=== PATIENT | male | born 1940 | race Caucasian/White ===

== ENCOUNTER 2018-08-21 20:10 | Observation (INO) | payer MEDICARE, OTHER ==
[2018-08-21 20:50] LABS: #Eosinphils 0.2 thou/uL (0.0-0.7); #Lymphocytes 1.7 thou/uL (1.20-3.40); #Monocytes 0.5 thou/uL (0.11-0.59); %Basophils 0.6 % (0.0-1.0); %Eosinophils 3.8 % (0.0-10.0); %Lymphocytes 39.6 % (21.0-51.0); %Monocytes 10.2 % (0.0-10.0); %Neutrophils 45.7 % (42.0-75.0); Hemoglobin 12.7 g/dL (14.0-18.0); Mean Corpuscular HGB CONC 33.5 g/dL (32.0-36.0); Mean Corpuscular Volume 95.5 fL (78.0-98.0); Mean Platelet Volume 6.9 fL (7.4-10.4); Platelet Count 182 thou/uL (130-400); RBC Distribution Width 12.2 % (11.5-14.5); Red Blood Cell (RBC) Count 3.96 mill/uL (4.70-6.10); White Blood Cell (WBC) Count 4.4 thou/uL (4.8-10.8)
[2018-08-21 21:09] LABS: Anion Gap 11 mmol/L (10-20); BUN (Urea Nitrogen) 9 mg/dL (8.4-25.7); Calc. Creatinine Clearance 0 mL/min (70-130); Carbon Dioxide 26 mmol/L (23-31); Chloride 106 mmol/L (98-107); Estimated GFR-MDRD 87; Glucose 90 mg/dL (83-110); Potassium 3.6 mmol/L (3.5-5.1); Sodium 139 mmol/L (136-145)
[2018-08-21 21:21] LABS: INR-International Normal Ratio 1.2; Prothrombin Time 15.6 SEC (12.0-14.7)
[2018-08-21] MEDS ORDERED: Zolpidem Tartrate 5 MG TAB PO PRN (22:47)
[2018-08-21] MEDS ORDERED: Acetaminophen 325 MG TAB PO PRN (22:47)
[2018-08-21] MEDS ORDERED: Ondansetron PF 4 MG/2 ML Vial IVP PRN (22:47)
[2018-08-21] MEDS ORDERED: Metoprolol Tartrate 5 MG/5 ML VIAL IVP PRN (22:51)
--- NOTE | 2018-08-21 23:41 | HP ---
CHIEF COMPLAINT: GI bleed. HISTORY OF PRESENT ILLNESS: This is a 78-year-old male, being admitted to the hospital because of black tarry stools that he noticed 1st thing last night around 7 p.m. The patient states that he has a past medical history of atrial fibrillation and he has been on Eliquis. Apart from that, he states that he does not have any other medical issues or problems. States that he has been taking Eliquis for few years now since his diagnosis of atrial fibrillation. The patient, otherwise, states that he also has a past medical history of prostate cancer that he does see Dr. Pierson for and gets monthly hormone shots for this. The patient states that black tarry stool started yesterday. He has only had 1 or 2 bowel movements. It was red initially and then became very very dark. He has had 2 bowel movements with this color. Denies any other symptoms. No nausea, vomiting, diarrhea, constipation, chest pain, fevers, chills, or shortness of breath. The patient is seen and examined in the ER. at bedside. All questions answered. ALLERGIES: NO KNOWN DRUG ALLERGIES. REVIEW OF SYSTEMS: All systems reviewed, pertinent positive in HPI, otherwise negative. SOCIAL HISTORY: Nondrinker and nonsmoker. FAMILY HISTORY: Positive for hypertension and diabetes. HOME MEDICATIONS: See MAR. PHYSICAL EXAMINATION: VITAL SIGNS: Blood pressure was 112/88, heart rate of 65, respiratory rate of 18, O2 saturations of 99% on room air, temperature of 98. GENERAL: The patient is lying in bed, in no acute discomfort. HEENT: Pupils are equal, round, and reactive to light and accommodation. Oral cavity moist and pink. NECK: Supple, mobile, and nontender. Thyroid appreciated. CARDIOVASCULAR: Regular rate and rhythm. S1 and S2. No murmurs, rubs, or gallops appreciated. PULMONARY: Clear to auscultation bilaterally. No respiratory distress. ABDOMEN: Positive bowel sounds. Soft, nontender, and nondistended. EXTREMITIES: 2+ peripheral pulses. No cyanosis, clubbing, or edema noted. NEUROLOGICAL: Cranial nerves II through XII intact. No loss of motor or sensory function. LABORATORY DATA: CBC reviewed. Coagulation panel reviewed. Basic metabolic panel reviewed. ASSESSMENT: 1. Upper gastrointestinal bleed. 2. History of atrial fibrillation, paroxysmal. PLAN: At this point in time, given that the patient has regular rate and rhythm as no cardiac abnormalities with hemodynamic stability, we will hold off on Eliquis for now. Consulted GI. Started IV fluids. N.p.o. past midnight. Protonix 40 mg IV q.12 hours. Possible endoscopy in the morning. The patient has had a colonoscopy approximately a little more than half a decade ago and was told that he does not need any further scopes that he had 1 polyp removed last time. The patient, otherwise, is stable. We will place in observation. Repeat hemoglobin tomorrow. If hemoglobin is stable, can even do perhaps outpatient followup with GI if okay with GI. Wishes to remain a full code. Case and plan were discussed the patient's and the patient at length. They understand and agree with this plan. Job ID: [id number]
[2018-08-22] MEDS: Sodium Chloride 0.9% 1,000 ML IV SCH ×2 (00:07→13:15)
[2018-08-22 05:38] LABS: #Eosinphils 0.1 thou/uL (0.0-0.7); #Lymphocytes 1.3 thou/uL (1.20-3.40); #Monocytes 0.3 thou/uL (0.11-0.59); #Neutrophils 1.2 thou/uL (1.40-6.50); %Basophils 0.7 % (0.0-1.0); %Eosinophils 3.1 % (0.0-10.0); %Lymphocytes 44.3 % (21.0-51.0); %Monocytes 8.9 % (0.0-10.0); Mean Corpuscular Volume 94.2 fL (78.0-98.0); Mean Platelet Volume 7.1 fL (7.4-10.4); Platelet Count 155 thou/uL (130-400); RBC Distribution Width 12.2 % (11.5-14.5); Red Blood Cell (RBC) Count 3.65 mill/uL (4.70-6.10); White Blood Cell (WBC) Count 2.9 thou/uL (4.8-10.8)
[2018-08-22 05:57] LABS: Anion Gap 11 mmol/L (10-20); BUN (Urea Nitrogen) 8 mg/dL (8.4-25.7); Calc. Creatinine Clearance 81 mL/min (70-130); Calcium 8.6 mg/dL (7.8-10.44); Carbon Dioxide 26 mmol/L (23-31); Chloride 108 mmol/L (98-107); Estimated GFR-MDRD Greater than 90; Glucose 102 mg/dL (83-110); Potassium 3.6 mmol/L (3.5-5.1); Sodium 141 mmol/L (136-145)
[2018-08-22] MEDS: Pantoprazole 40 MG VIAL IVP SCH ×2 (08:47→20:50)
[2018-08-22] MEDS: Flecainide 50 MG TAB PO SCH ×2 (08:47→20:50)
--- NOTE | 2018-08-22 12:15 | PDOC.PN ---
- Subjective Encounter Start Date: 08/22/18 Encounter Start Time: 12:13 Subjective: noticed bleeding GA since 6 pm last night,small amount this morning -: but feels good. no dizziness.no sob. -: reports that he is still on PO Chemo for recurrent prostate CA denies any blood in urine. no abd pain - Objective Resuscitation Status - Order Detail: 08/21/18 22:47 Resuscitation Status Routine Resuscitation Status: FULL: Full Resuscitation Discussed with: patient MAR Reviewed: Yes Vital Signs & Weight: Vital Signs (12 hours) Temp Pulse Resp BP Pulse Ox 08/22/18 07:20 97.3 F L 56 L 20 140/65 99 08/22/18 04:59 97 08/22/18 02:03 97.8 F 61 16 155/75 H 97 Weight Weight 170 lb 6.4 oz I&O: 08/21/18 08/22/18 08/23/18 06:59 06:59 06:59 Intake Total 280 Balance 280 Result Diagrams: 08/22/18 05:21 08/22/18 05:21 Additional Labs: Laboratory Tests 12/07/14 08/21/18 08/22/18 10:15 20:42 05:21 Hgb 12.5 L 12.7 L 12.0 L Phys Exam - Physical Examination Constitutional: NAD HEENT: PERRLA, moist MMs, sclera anicteric, oral pharynx no lesions Neck: no nodes, no JVD, supple, full ROM Respiratory: no wheezing, no rales, no rhonchi, clear to auscultation bilateral Cardiovascular: RRR, no significant murmur, no rub Gastrointestinal: soft, non-tender, no distention, positive bowel sounds Musculoskeletal: no edema, pulses present Neurological: non-focal, normal sensation, moves all 4 limbs Psychiatric: normal affect, A&O x 3 Skin: no rash Dx/Plan (1) Hematochezia Code(s): K92.1 - MELENA Status: Acute (2) Prostate cancer Code(s): C61 - MALIGNANT NEOPLASM OF PROSTATE Status: Acute Comment: Recurrent.s/p Sx and Radiation.now On PO Chemo and IV q3 months (3) Paroxysmal atrial fibrillation Code(s): I48.0 - PAROXYSMAL ATRIAL FIBRILLATION Status: Chronic - Plan DVT proph w/SCDs H/H stable. cont PPI -: will likley need colonoscopy.suspect AVM or in worst case scenario-mets -: check UA . -: Hd stable. cont IVF.NPO -: restart flecainide but cont to hold OAC d/t GIB * . Review of Systems - Review of Systems Constitutional: negative: fever, chills, sweats, weakness, malaise, other ENT: negative: Ear Pain, Ear Discharge, Nose Pain, Nose Discharge, Nose Congestion, Mouth Pain, Mouth Swelling, Throat Pain, Throat Swelling, Other Respiratory: negative: Cough, Dry, Shortness of Breath, Hemoptysis, SOB with Excertion, Pleuritic Pain, Sputum, Wheezing Cardiovascular: negative: chest pain, palpitations, orthopnea, paroxysmal nocturnal dyspnea, edema, light headedness, other Gastrointestinal: Hematochezia. negative: Nausea, Vomiting, Abdominal Pain, Diarrhea, Constipation, Melena, Other Genitourinary: negative: Dysuria, Frequency, Incontinence, Hematuria, Retention , Other Neurological: negative: Weakness, Numbness, Incoordination, Change in Speech, Confusion, Seizures, Other - Medications/Allergies Allergies/Adverse Reactions: Allergies Allergy/AdvReac Type Severity Reaction Status Date / Time No Known Drug Allergies Allergy Verified 08/21/18 23:53 Medications: Current Medications Acetaminophen (Tylenol) 650 mg PO Q4H PRN PRN Reason: Headache/Fever/Mild Pain (1-3) Flecainide Acetate (Tambocor) 100 mg PO BID [facility] Last Admin: 08/22/18 08:47 Dose: 100 mg Sodium Chloride (Normal Saline 0.9%) 1,000 mls @ 75 mls/hr IV .[id number] [facility] Last Admin: 08/22/18 00:07 Dose: 1,000 mls Metoprolol Tartrate (Lopressor) 5 mg IVP Q6H PRN PRN Reason: FOR HR > 120 Ondansetron HCl (Zofran) 4 mg IVP Q6H PRN PRN Reason: Nausea/Vomiting Pantoprazole Sodium (Protonix) 40 mg IVP Q12HR [facility] Last Admin: 08/22/18 08:47 Dose: 40 mg Sodium Chloride (Flush - Normal Saline) 10 ml IVF Q12HR [facility] Last Admin: 08/22/18 08:48 Dose: Not Given Sodium Chloride (Flush - Normal Saline) 10 ml IVF PRN PRN PRN Reason: Saline Flush Zolpidem Tartrate (Ambien) 5 mg PO HSPRN PRN PRN Reason: Insomnia
[2018-08-22 12:21] LABS: Bilirubin Negative (Negative); Blood, Urine Negative (Negative); Clarity CLEAR (Clear); Glucose, Urine (Dipstick) Negative (Negative); Leukocyte Negative (Negative); Nitrite Negative (Negative); Protein, Urine (Dipstick) Negative (Neg-Trace); Specific Gravity, Urine 1.015 (1.002-1.036); pH, Urine 6.5 (5.0-9.0)
[2018-08-22 12:24] LABS: Bacteria/HPF None Seen HPF (None Seen); Hyaline Casts/LPF 0-3 HYALINE CAST LPF (0-3 Hyaline); Pathc Cast-AUWi Flag 0.67 (0-2.49); RBC/HPF 0-3 HPF (0-3); Squamous Epithelial 0-3 HPF (0-3); WBC/HPF None Seen HPF (0-3)
[2018-08-22 12:25] LABS: Urine Culture Reflex No No
[2018-08-22 13:52] LABS: Hemoglobin 11.8 g/dL (14.0-18.0)
[2018-08-22] MEDS ORDERED: GoLYTELY 4,000 ml Bottle PO SCH (20:00)
--- NOTE | 2018-08-22 23:40 | CON ---
DATE OF CONSULTATION: 08/22/2018 CHIEF COMPLAINT: Blood in the stool. HISTORY OF PRESENT ILLNESS: Mr. Gutierrez is a 78-year-old man who had sudden onset of a large volume red bloody stools with clots followed by black stools 3 or 4 times yesterday. He has had no nausea, vomiting, or abdominal pain with this. No diarrhea or constipation preceding that. No chest pain or shortness of breath. He has been on Eliquis for atrial fibrillation. His last dose was Thursday morning, yesterday morning. This afternoon, he had 2 stools that were more brown, mixed with some red blood. He has had no dizziness or lightheadedness or weakness. He has felt fine throughout the course of this. PAST MEDICAL HISTORY: Atrial fibrillation and history of prostate cancer. PAST SURGICAL HISTORY: Hernia repair. He states he had a colonoscopy around 6 years ago. Review of the records from my office showed that he had colonoscopy in March of [address] Chapman[address] This showed diverticulosis in the left colon, but was otherwise normal. He had EGD and colonoscopy in December 2009, which showed small hiatal hernia, otherwise normal EGD, and a small tubular adenoma removed from the right colon. Prostatectomy followed by a year later multiple radiation treatments. FAMILY HISTORY: Positive for colon cancer in his mother. SOCIAL HISTORY: He drinks 2 ounces of alcohol, average 3 times per week. No tobacco. No drugs. ALLERGIES: NO KNOWN DRUG ALLERGIES. MEDICATIONS: Prior to admission include, 1. Eliquis. 2. Omeprazole. 3. Tamsulosin. 4. Xtandi. 5. He gets hormone shots once a month. REVIEW OF SYSTEMS: Negative x10 systems reviewed except as stated in the history of present illness. PHYSICAL EXAMINATION: VITAL SIGNS: Temperature 98.1, pulse 48, blood pressure 155/75. GENERAL: He is in no acute distress. Alert and oriented x3. HEENT: Eyes have no scleral icterus. Oropharynx is clear without lesions. NECK: No cervical or supraclavicular lymphadenopathy. LUNGS: Clear to auscultation bilaterally. HEART: Regular rate and rhythm without murmur. ABDOMEN: Soft, nontender, and nondistended. Bowel sounds are present. EXTREMITIES: No lower extremity edema. RECTAL: He has light brown stool with reddish tint now. LABORATORY DATA: White blood cell count 2.9, hemoglobin 11.8, platelets 155. INR 1.2. Creatinine 0.82. IMPRESSION: 1. Acute gastrointestinal bleed on Eliquis. He started with both black and red stools. However, the stool now is more brown with reddish tint. I would suspect overall that this is an upper gastrointestinal bleed, but he said there was a lot of red with the blood too and he has no melena on rectal exam now, so it is possible that this could be lower gastrointestinal bleed. 2. Anemia of acute blood loss. 3. Atrial fibrillation. His last dose of Eliquis was on Thursday, yesterday morning. RECOMMENDATIONS: 1. Proton pump inhibitor. 2. EGD and colonoscopy tomorrow. Job ID: [id number]
[2018-08-23] MEDS: Sodium Chloride 0.9% 1,000 ML IV SCH ×2 (02:00→15:23)
[2018-08-23 05:34] LABS: Hemoglobin 11.7 g/dL (14.0-18.0)
[2018-08-23] MEDS ORDERED: Lidocaine Viscous Sol 2% 15 ml UD Cup ONE (10:07)
[2018-08-23] MEDS ORDERED: Promethazine HCl 25 MG/ML VIAL SLOW IVP PRN (11:07)
[2018-08-23] MEDS ORDERED: Promethazine HCl 25 MG/ML VIAL IM PRN (11:07)
[2018-08-23] MEDS ORDERED: Ondansetron HCl/PF 4 MG/2 ML Vial IVP PRN (11:07)
--- NOTE | 2018-08-23 11:33 | OP ---
DATE OF PROCEDURE: 08/23/2018 PROCEDURE PERFORMED: Esophagogastroduodenoscopy and colonoscopy. PREOPERATIVE DIAGNOSIS: GI bleed while on Eliquis. DESCRIPTION OF PROCEDURE: Informed consent was obtained from the patient. He was sedated with total intravenous anesthesia. The bite block was placed and the endoscope was advanced easily to the second portion of the duodenum and retroflexion was performed in the stomach. The esophagus was normal. The GE junction was normal. Stomach was normal including retroflexed views. The pylorus and first and second portions of the duodenum were normal. The image quality was suboptimal with the upper endoscopy. The patient was turned around. Rectal exam was performed and was normal. The colonoscope was advanced to the terminal ileum without difficulty. The mucosa of the terminal ileum was normal. The ileocecal valve and appendiceal orifice were clearly identified. There was moderate diverticulosis throughout the colon. The remainder of the colonic mucosa was normal. There were mild radiation telangiectasias in the anterior distal rectum. These were not bleeding. Retroflexed views in the rectum unremarkable. IMPRESSION: 1. Normal esophagogastroduodenoscopy. 2. Moderate diverticulosis throughout the colon. This could have been the bleeding source. There is no stigmata of recent bleeding on this exam, now he has been off the Eliquis. 3. Mild radiation telangiectasias in the rectum. 4. Otherwise normal ileocolonoscopy. RECOMMENDATIONS: 1. Advance diet. 2. Obtain nuclear medicine abdominal bleeding scan if he actively bleeds in the future. 3. Hold Eliquis for a week. 4. Anticipate discharge home today. I will sign off. Job ID: [id number]
[2018-08-23] MEDS: Pantoprazole 40 MG VIAL IVP SCH (11:55)
[2018-08-23] MEDS: Flecainide 50 MG TAB PO SCH (12:06)
[2018-08-23 12:26] VITALS: TEMP 97.8
[2018-08-23 12:36] VITALS: BMI 24.5
[2018-08-23] MEDS ORDERED: hydrALAZINE 20 MG/ML VIAL SLOW IVP PRN (13:16)
[2018-08-23] MEDS ORDERED: cloNIDine 0.1 MG TAB PO PRN (13:17)
[2018-08-23] MEDS ORDERED: PROPOFOL 200 MG/20 ML VIAL ONE (14:10)
[2018-08-23] MEDS ORDERED: Lidocaine 1% PF 5 ML VIAL ONE (14:10)
[2018-08-23 15:23] VITALS: BP 130/60
--- NOTE | 2018-08-24 03:52 | DIS ---
DATE OF ADMISSION: 08/21/2018 DATE OF DISCHARGE: 08/23/2018 CONDITION: At the time of discharge, stable and improved. DISCHARGE DISPOSITION: Home. DISCHARGE DIAGNOSES: 1. Lower gastrointestinal bleed, likely a diverticular bleed. 2. Hematochezia, secondary to lower gastrointestinal bleed. 3. History of prostate cancer. 4. Paroxysmal atrial fibrillation, on chronic anticoagulation. DISCHARGE MEDICATIONS: 1. Flomax 0.4 mg daily. 2. Omeprazole 20 mg p.o. b.i.d. 3. Flecainide 100 mg p.o. b.i.d. 4. Cholecalciferol 1000 units p.o. b.i.d. The patient will hold his Eliquis dose for 1 more week and not get his hemoglobin and hematocrit checked with his primary care physician, who is outside of town and will follow up with his emergency specialist for recommendations about restarting Eliquis. PRIMARY CARE PHYSICIAN: Dr. Duglas Magallanes, out of [facility]. IN-HOUSE CONSULTATION: Gastroenterology, Dr. Encarnacion. PROCEDURES DONE IN THE HOSPITAL: Esophagogastroduodenoscopy and colonoscopy on 08/23/2018. He has normal esophagogastroduodenoscopy. Moderate diverticulosis was seen throughout the colon, which could have been the bleeding source, but no active bleeding or stigmata of recent bleeding was seen. Mild radiation telangiectasias was seen in the rectum, otherwise normal ileocolonoscopy. HISTORY OF PRESENTING ILLNESS: Mr. Gutierrez is a very pleasant 78-year-old male who is on Eliquis for chronic atrial fibrillation and currently on oral chemotherapy for prostate cancer, who presented to the emergency room with complaints of multiple episodes of bright red blood per rectum. He was hemodynamically stable upon presentation and hemoglobin was 12.7. His baseline is around 11. He was admitted for further evaluation and care. Please see admission history and physical dictated by Dr. Infante on 08/21/2018. HOSPITAL COURSE: The patient's hemoglobin was trended and remained stable. It went as low as 11.7. He had no more episodes of bleeding in the hospital. He was taken off Eliquis and GI was consulted. Gastroenterology saw the patient and he underwent EGD and colonoscopy, which did not show any active bleed. He did have diverticulosis, which was thought to be likely source of the bleeding. The bleeding has not reoccurred and hemoglobin and hematocrit are stable and has been cleared by Gastroenterology for discharge today. He was seen and examined prior to discharge. His physical examination is within normal limits. Vital signs are stable. Blood pressure was slightly elevated, which was treated with 1 dose of p.r.n. clonidine with improvement to systolic 130s from systolic 170s. He is instructed to not take his Eliquis for 1 more week and discuss it further with his emergency specialist. He will get his hemoglobin and hematocrit checked with his primary care physician in the next 2 days and will discuss if it is safe for him to restart Eliquis earlier given his history of atrial fibrillation. Currently, he remains in normal sinus rhythm. PHYSICAL EXAMINATION: CHEST: Clear to auscultation bilaterally. HEART: Rate and rhythm are regular. ABDOMEN: Soft, nontender, and nondistended. No acute distress. DISCHARGE PLAN: Discharge plan was discussed with the patient and his , who verbalized understanding. Job ID: [id number]
== END 2018-08-23 15:06 | disposition home or self-care (01) ==
LOC: ERS 20:10 → ONC 23:18 → INTOOBSV 23:18 → 2SW 08-22 01:58
PROVIDERS: ADMIT Internal Medicine; ATTEND Internal Medicine
PROC: 0DJ08ZZ Inspection of Upper Intestinal Tract, Via Natural or Artificial Opening Endoscopic (ICD-10-PCS; principal; 2018-08-23)
PROC: 0DJD8ZZ Inspection of Lower Intestinal Tract, Via Natural or Artificial Opening Endoscopic (ICD-10-PCS; 2018-08-23)
DX: K57.31 Diverticulosis of large intestine without perforation or abscess with bleeding (principal); K62.89 Other specified diseases of anus and rectum; D62 Acute posthemorrhagic anemia; I48.0 Paroxysmal atrial fibrillation; C61 Malignant neoplasm of prostate; Z86.010 Personal history of colon polyps; Z79.01 Long term (current) use of anticoagulants; Z79.899 Other long term (current) drug therapy
CPT/HCPCS: 36415; 80048; 81001; 85014; 85018; 85025; 85610; 96361; 96374; 96376; 99285; C9113; G0378; J2001; J2704

== ENCOUNTER 2018-08-28 21:51 | Inpatient (IN) | payer MEDICARE, OTHER ==
[2018-08-28] MEDS ORDERED: Diltiazem 125 MG/25 ML ONE (22:11)
[2018-08-28 22:23] LABS: #Eosinphils 0.1 thou/uL (0.0-0.7); #Lymphocytes 1.5 thou/uL (1.20-3.40); #Monocytes 0.5 thou/uL (0.11-0.59); #Neutrophils 2.3 thou/uL (1.40-6.50); %Basophils 0.6 % (0.0-1.0); %Lymphocytes 33.6 % (21.0-51.0); %Neutrophils 51.8 % (42.0-75.0); Hemoglobin 12.3 g/dL (14.0-18.0); Mean Corpuscular HGB CONC 34.3 g/dL (32.0-36.0); Mean Corpuscular Hemoglobin 32.5 pg (27.0-31.0); Mean Corpuscular Volume 94.8 fL (78.0-98.0); Mean Platelet Volume 7.1 fL (7.4-10.4); Platelet Count 176 thou/uL (130-400); RBC Distribution Width 12.2 % (11.5-14.5); Red Blood Cell (RBC) Count 3.78 mill/uL (4.70-6.10); White Blood Cell (WBC) Count 4.4 thou/uL (4.8-10.8)
--- NOTE | 2018-08-28 22:28 | RAD ---
PORTABLE CHEST: 08/28/18 HISTORY: Chest pain. The lungs appear clear. No infiltrate. Heart size is upper normal. Vasculature normal. IMPRESSION: No acute findings. POS: [facility]
[2018-08-28] MEDS ORDERED: Aspirin Chewable 81 MG TAB ONE (22:36)
[2018-08-28 22:40] LABS: ALT (SGPT) 7 U/L (8-55); AST (SGOT) 10 U/L (5-34); Alkaline Phosphatase 64 U/L (40-150); Anion Gap 13 mmol/L (10-20); BUN (Urea Nitrogen) 15 mg/dL (8.4-25.7); Bilirubin, Total 0.6 mg/dL (0.2-1.2); CK (CPK) 63 U/L (30-200); Calc. Creatinine Clearance 0 mL/min (70-130); Calcium 9.1 mg/dL (7.8-10.44); Carbon Dioxide 24 mmol/L (23-31); Chloride 106 mmol/L (98-107); Estimated GFR-MDRD 88; Globulin 2.3 g/dL (2.4-3.5); Glucose 99 mg/dL (83-110); Potassium 3.2 mmol/L (3.5-5.1); Protein, Total 6.3 g/dL (5.8-8.1); Sodium 140 mmol/L (136-145)
[2018-08-29 01:34] VITALS: BMI 24.7
[2018-08-29] MEDS ORDERED: Ondansetron ODT 4 MG TAB SL PRN (01:53)
[2018-08-29] MEDS ORDERED: Acetaminophen 325 MG TAB PO PRN (01:53)
[2018-08-29] MEDS ORDERED: Ondansetron PF 4 MG/2 ML Vial IVP PRN (01:53)
[2018-08-29] MEDS ORDERED: Diltiazem HCl 125 MG, Admixture Fee 1 EACH in Sodium Chloride 0.9% 100 ML IVPB SCH (02:00)
[2018-08-29] MEDS ORDERED: Sodium Chloride 0.9% 1,000 ML IV SCH (02:00)
[2018-08-29 02:03] LABS: Troponin I Less than 0.010 ng/mL (< 0.028)
[2018-08-29 06:32] LABS: Troponin I 0.013 ng/mL (< 0.028)
[2018-08-29] MEDS ORDERED: Potassium Chloride 20 MEQ TAB PO SCH (08:45)
[2018-08-29 09:40] LABS: Free T4 (Free Thyroxine) 0.88 ng/dL (0.70-1.48); Thyroid Stimulating Hormone 2.57 uIU/mL (0.35-4.94)
[2018-08-29] MEDS: Flecainide 50 MG TAB PO SCH ×2 (11:37→21:15)
[2018-08-29] MEDS: Tamsulosin HCl 0.4 MG CAP PO SCH (11:37)
[2018-08-29] MEDS: Apixaban 5 MG TAB PO SCH ×2 (11:37→21:14)
--- NOTE | 2018-08-29 17:57 | CON ---
DATE OF CONSULTATION: 08/29/2018 REASON FOR CONSULTATION: Chest pain. HISTORY OF PRESENT ILLNESS: Mr. Gutierrez is a pleasant 78-year-old white gentleman, who comes to the hospital for chest pain. He was found to be in atrial fibrillation with RVR, eventually went back into sinus rhythm. His chest pain improved after that. He has had heart catheterization in the past about anywhere from, he thinks about 4 to 6 years ago[address] Neal in [place], who comes to an area close to where he lives from [place] in [facility]. He has been following him for paroxysmal atrial fibrillation. He has been on Eliquis for some time. Mr. Gutierrez had an admission just about a week ago to this facility for blood per rectum. He had colonoscopy and endoscopy and he was found to have diverticulosis and was told that he may have ooze from the diverticulosis, but there was no evidence of recent bleeding. He had his Eliquis stopped for a week and restarted. He actually took his first dose last night. Currently, Mr. Gutierrez is chest pain free. PAST MEDICAL HISTORY: 1. Paroxysmal atrial fibrillation. 2. GI bleeding from what appears to be diverticulosis. 3. History of prostate cancer. PAST SURGICAL HISTORY: 1. Hernia repair. 2. Recent EGD, colonoscopy. 3. Prostatectomy followed by radiation. FAMILY HISTORY: Noncontributory. SOCIAL HISTORY: 2 ounce of alcohol about 3 times a week. No tobacco or drugs. OUTPATIENT MEDICATIONS: 1. Enzalutamide, which is Xtandi 160 mg q.p.m. 2. Tamsulosin. 3. Omeprazole. 4. Flecainide 100 mg b.i.d. 5. Vitamin D3. 6. Eliquis 5 mg b.i.d., he restarted this morning. ALLERGIES: NO KNOWN DRUG ALLERGIES. REVIEW OF SYSTEMS: A 12-point review of systems was done, was all negative unless stated in the history of present illness. PHYSICAL EXAMINATION: VITAL SIGNS: Temperature 97.0, pulse 61, respiratory rate 16, saturating 98% on room air, and blood pressure 123/59. GENERAL: Awake, alert, oriented x3. No distress. HEENT: Normocephalic, atraumatic. NECK: Supple. LUNGS: Clear. CARDIOVASCULAR: S1 and S2. No S3 or S4. No murmurs. ABDOMEN: Soft, positive bowel sounds. EXTREMITIES: No edema. SKIN: Warm and dry. LABORATORY DATA: Laboratory work was reviewed. CBC with a white count of 4, hemoglobin of 12, hematocrit 35, platelet count of 176. Chemistry unremarkable except potassium is 3.2. Troponin is negative x3. Free T4, free T3 and TSH were all normal. ASSESSMENT AND PLAN: 1. Paroxysmal atrial fibrillation, currently back in sinus rhythm. 2. Chest pain. 3. Recent gastrointestinal bleed, on Eliquis. PLAN: 1. At this point, it would be prohibitive to do a heart catheterization as if there is any complication that requires stenting he would have to be on dual anti-platelet therapy for at least one month and with his recent history of GI bleeding, I would think the risk outweighs the benefits. At this time, his troponins completely negative. His chest pain was in the setting of having rapid atrial fibrillation, which most likely happened due to having low potassium. We will recommend replacing the potassium. We will recommend against any further risk stratification. He tells me he has had a heart catheterization about 4 to 6 years ago which was completely clean, so the likelihood of coronary artery disease is somewhat lower. 2. We will get an echocardiogram to assess LV function, valvular structures. 3. I spoke at length about being a candidate for Watchman versus Lariat device given his recent GI bleeding, on Eliquis. He agrees to at least talk to the [employer] to see if he would be a candidate or not for this. We will consult EP for this. 4. Otherwise per GI recommendations, okay to restart Eliquis. I would be very careful, continue to trend CBCs in the next few days. 5. We will follow. Job ID: [id number]
[2018-08-29] MEDS ORDERED: Enzalutamide [Xtandi] 160 MG PO SCH (21:00)
[2018-08-30 06:15] LABS: Hemoglobin 11.5 g/dL (14.0-18.0); Platelet Count 161 thou/uL (130-400)
[2018-08-30 06:36] LABS: Calc. Creatinine Clearance 87 mL/min (70-130); Estimated GFR-MDRD Greater than 90
--- NOTE | 2018-08-30 07:35 | HP ---
CHIEF COMPLAINT: Chest pain and heart palpitations. HISTORY OF PRESENT ILLNESS: The patient is a 78-year-old male, who is admitted to the hospital with acute onset of chest pain and heart palpitations. The pain started yesterday. It was located retrosternally, rated at 8 on a scale from 1 to 10, associated with some shortness of breath. No nausea. No vomiting. No clammy skin. brought him to the emergency room last night. He was found to be in atrial fibrillation with RVR and was given Cardizem and got admitted to the hospital for further management of his problem. He has a history of paroxysmal atrial fibrillation in the past. His environmental program manager is in [place] which is Dr. Lopez. His primary care physician is Dr. Magallanes in [place]. Surrogate decision maker, Arden Gutierrez, patient's son. The patient was given Cardizem in the emergency room, which slowed his heart rate to below 100 and helped his chest pain. MEDICAL HISTORY: 1. Paroxysmal atrial fibrillation. 2. Recent lower GI bleeding. 3. Chronic anticoagulation with Eliquis. 4. Prostate cancer status post surgery and radiation. PAST SURGICAL HISTORY: 1. Hernia repair. 2. Prostatectomy. 3. Tonsillectomy. 4. Bilateral hip replacement. ALLERGIES: NONE. CURRENT MEDICATIONS: 1. Omeprazole 20 mg twice a day. 2. Tamsulosin 0.4 mg once a day. 3. Xtandi 40 mg once a day. 4. Flecainide 100 mg twice a day. FAMILY HISTORY: Mother when she was 62 of colon cancer. Father at the age of 42 from some kind of ulcer bleeding. SOCIAL HISTORY: He drinks daily, usually 1 to 2 drinks. He does not use any illicit drugs. He does not smoke. REVIEW OF SYSTEMS: All 10 systems were reviewed and they were all only positive for those symptoms which mentioned in HPI. PHYSICAL EXAMINATION: VITAL SIGNS: Blood pressure is 115/56, pulse is 57, temperature is 96.6, respirations are 16, and O2 saturation is 98% on room air. HEENT: Head is atraumatic and normocephalic. Eyes are PERRLA. Sclerae are nonicteric. Oral mucosa is moist. NECK: Supple. LUNGS: Clear. HEART: S1 and S2 normal. No S3. No S4. No any murmur. ABDOMEN: Soft and nontender. Bowel sounds are present. No organomegaly. EXTREMITIES: No clubbing, cyanosis, or edema. NEUROLOGIC: He is alert and oriented x4. There is no any motor or sensory deficits present. Cranial nerves are intact. LABORATORY DATA: Labs showed a white count of 4.4, hemoglobin of 12.3, hematocrit 35.9, platelet count is 176,000. Chemistry shows sodium of 140, potassium 3.2, chloride 106, CO2 of 24, BUN 15, creatinine 0.84, magnesium 1.9, calcium 9.1, AST 10, ALT 7, globulin 2.3, and three sets of troponins 0.010 x3. EKG personally reviewed by me showed atrial fibrillation with RVR, ventricular rate 129 with infrequent premature ventricular complexes. IMPRESSION: 1. Recurrent atrial fibrillation with rapid ventricular response. 2. Hypokalemia. 3. Recent low GI bleeding. Eliquis was put on hold for 1 week. 4. Prostate cancer. 5. Chest pain, resolved. PLAN: Full admission to telemetry floor. Condition fair. Activity bedrest and bathroom privileges. IV Hep-Lock. Continue his home medications. Restart Eliquis. He just converted to normal sinus rhythm at 0440 hours and Cardizem drip was stopped since he had several pauses more than 2 seconds' long and I think this recurrent event is related to his alcohol drinking and he is advised to stop drinking alcohol. I will check his TSH, free T3, and free T4. We will obtain Cardiology consultation with Dr. Frausto. Job ID: [id number]
[2018-08-30] MEDS: Flecainide 50 MG TAB PO SCH ×2 (09:12→20:18)
[2018-08-30] MEDS: Apixaban 5 MG TAB PO SCH ×2 (09:12→20:18)
[2018-08-30] MEDS: Tamsulosin HCl 0.4 MG CAP PO SCH (09:13)
--- NOTE | 2018-08-30 13:27 | PRG ---
DATE OF SERVICE: 08/30/2018 SUBJECTIVE: The patient is seen and examined at the bedside. He is feeling good. He does not have much complaints to offer. He does not have any chest pain and he does not feel his heart flipping and flopping like before. OBJECTIVE: VITAL SIGNS: Blood pressure is 148/61, pulse is 53, temperature is 97.5, respiratory rate is 16, O2 saturation is 97% on room air. HEENT: His head is atraumatic and normocephalic. Eyes are PERRLA. Sclerae are nonicteric. Oral mucosa is moist. NECK: Supple. No lymphadenopathy. LUNGS: Clear. HEART: S1, S2. No S3. No S4. ABDOMEN: Soft, nontender. Bowel sounds are present. No organomegaly. EXTREMITIES: No clubbing, cyanosis, or edema. NEUROLOGICAL: He is alert and oriented x4. There is no any motor or sensory deficit present. Cranial nerves are intact. LABORATORY DATA: Hemoglobin of 11.5, hematocrit 33.3. Creatinine 0.77. Free T3 2.93, free T4 0.88. TSH 3rd generation 2.57. IMPRESSION: 1. Paroxysmal atrial fibrillation back in sinus rhythm, he converted yesterday. 2. Chest pain of unclear etiology, but is mostly related to his episode of paroxysmal atrial fibrillation since he is not complaining about any discomfort now. 3. Recent gastrointestinal bleeding, is restarted. 4. Prostate cancer. 5. Hypokalemia resolved. DISCUSSION: The patient was seen by Dr. Frausto for Cardiology evaluation. He asked electrophysiologists to see the patient for further evaluation. Continue his flecainide for now until we have more recommendation from limnologist. We will continue apixaban. Job ID: [id number]
[2018-08-30] MEDS ORDERED: Digoxin 0.5 MG/2 ML AMP SLOW IVP SCH (19:15)
[2018-08-30] MEDS ORDERED: Nitroglycerin 0.4 MG TAB (25 Tab Bottle) SL SCH (19:30)
[2018-08-30] MEDS ORDERED: Diltiazem HCl 125 MG, Admixture Fee 1 EACH in Sodium Chloride 0.9% 100 ML IVPB SCH (20:00)
[2018-08-31 07:24] LABS: #Eosinphils 0.1 thou/uL (0.0-0.7); #Lymphocytes 1.2 thou/uL (1.20-3.40); #Monocytes 0.4 thou/uL (0.11-0.59); #Neutrophils 2.1 thou/uL (1.40-6.50); %Basophils 0.8 % (0.0-1.0); %Eosinophils 3.3 % (0.0-10.0); %Lymphocytes 31.9 % (21.0-51.0); %Monocytes 9.2 % (0.0-10.0); %Neutrophils 54.8 % (42.0-75.0); Hemoglobin 12.7 g/dL (14.0-18.0); Mean Corpuscular HGB CONC 33.6 g/dL (32.0-36.0); Mean Corpuscular Hemoglobin 31.7 pg (27.0-31.0); Mean Corpuscular Volume 94.3 fL (78.0-98.0); Mean Platelet Volume 7.6 fL (7.4-10.4); Platelet Count 208 thou/uL (130-400); RBC Distribution Width 12.2 % (11.5-14.5); Red Blood Cell (RBC) Count 4.01 mill/uL (4.70-6.10); White Blood Cell (WBC) Count 3.8 thou/uL (4.8-10.8)
[2018-08-31 07:40] LABS: Anion Gap 12 mmol/L (10-20); BUN (Urea Nitrogen) 13 mg/dL (8.4-25.7); Calc. Creatinine Clearance 83 mL/min (70-130); Calcium 9.2 mg/dL (7.8-10.44); Carbon Dioxide 27 mmol/L (23-31); Chloride 106 mmol/L (98-107); Estimated GFR-MDRD Greater than 90; Glucose 105 mg/dL (83-110); Potassium 4.4 mmol/L (3.5-5.1); Sodium 141 mmol/L (136-145)
[2018-08-31] MEDS: Tamsulosin HCl 0.4 MG CAP PO SCH (10:18)
[2018-08-31] MEDS: Flecainide 50 MG TAB PO SCH ×2 (10:18→20:00)
[2018-08-31] MEDS: Apixaban 5 MG TAB PO SCH (10:18)
--- NOTE | 2018-08-31 16:44 | PDOC.CTH ---
Cardiology Progress Note - Subjective EP PROGRESS NOTE: 08/31/18 Seen and evalauted as follow up for Parox A Fib and OAC guidance. Had heart racing with AF overnight and transient dilt gtt. Had some slow heart rates upon conversion.no additional concerns or complaints today. - Objective Vital Signs Temp Pulse Resp BP Pulse Ox 08/31/18 11:59 97.4 F L 55 L 18 127/60 96 08/31/18 08:13 97.4 F L 53 L 18 169/72 H 96 Weight 168 lb 6.4 oz 08/30/18 08/31/18 09/01/18 06:59 06:59 06:59 Intake Total 970 1120 Output Total 1050 1675 Balance -80 -555 - Physical Examination General/Neuro: alert & oriented x3, NAD Neck: carotid US brisk, no JVD present Lungs: CTA, unlabored respirations Heart: PMI normal, RRR Abdomen: NT/ND, soft - Telemetry Telemetry Rhythm: SR - Labs Result Diagrams: 08/31/18 06:46 08/31/18 06:46 Troponin/CKMB Troponin I 0.013 ng/mL (< 0.028) 08/29/18 05:21 - Assessment/Plan 1. Paroxysmal/persistent atrial fibrillation - previously suppressed with flecainide 100mg BID by records from [facility]/ Dr London - continues to have break through RVR episodes - Had been on multaq in the past and not tolerated (diarrhea) 2. CHADS2-VASC: 2 (advanced age) - currently on Eliquis 5mg BID but with recent GIB. Stop eliquis is favor of lovenox starting 4/2 PM - needs score of at least 3 to qualify for Watchman. 3. Atypical chest pain - maybe related to tachycardia but would appreciate knowing CAD status as he is having CP and on flecainide. If CAD is present, alt. AAD would be needed. - possibly [facility] with Dr. 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 Continue to monitor for now. Cautiously use AV ivory blocking agents. QRS stable on [id number] BID. Continue therapy. Changing AC from Eliquis to Lovenox. Addendum - Physician - Physician Attestation Date/Time: 09/01/18 [id number] I personally performed or re-performed the physical examination and medical decision making. I have verified all Ms Gotti's documentation or findings, including history, physical exam and/or medical decision making.
--- NOTE | 2018-08-31 17:40 | PDOC.CTH ---
Cardiology Progress Note - Subjective He had several episodes of chest pain earlier today while in rapid afib. - Objective Vital Signs Temp Pulse Resp BP Pulse Ox 08/31/18 17:05 98.3 F 60 16 131/63 96 08/31/18 11:59 97.4 F L 55 L 18 127/60 96 08/31/18 08:13 97.4 F L 53 L 18 169/72 H 96 Weight 168 lb 6.4 oz 08/30/18 08/31/18 09/01/18 06:59 06:59 06:59 Intake Total 970 1120 Output Total 1050 1675 Balance -80 -555 - Physical Examination General/Neuro: alert & oriented x3, NAD Neck: no JVD present Lungs: unlabored respirations Heart: RRR Abdomen: NT/ND Extremities: other: (no edema) - Telemetry Telemetry Rhythm: NSR, Afib parox - Labs Result Diagrams: 08/31/18 06:46 08/31/18 06:46 Troponin/CKMB Troponin I 0.013 ng/mL (< 0.028) 08/29/18 05:21 - Assessment/Plan 1. Paroxysmal afib 2. Chest pain 3. Recent GI bleeding 4. Diverticulosis. PLAN: - Concern for angina with chest pain during tachycadia. - He has not had stress testing or LHC recently. - Will plan on risk stratification with [facility]. We spoke about risk and benefits and he agrees to proceed. The biggest risk in his case is if he were to need a stent it would need to be a BMS given high risk of bleeding. He understands and verbalizes understanding of this and agrees to proceed. - Will stop Eliquis and will start SQ lovenox and plan on doing this .
[2018-08-31] MEDS ORDERED: Communication Order-Pharmacy FS SCH (17:45)
[2018-08-31] MEDS: Enoxaparin Sodium 80 MG/0.8 ML SYRINGE SC SCH (20:00)
--- NOTE | 2018-08-31 21:16 | EKG ---
Test Reason : STAT Blood Pressure : / mmHG Vent. Rate : 109 BPM Atrial Rate : 093 BPM P-R Int : 000 ms QRS Dur : 106 ms QT Int : 354 ms P-R-T Axes : 000 035 064 degrees QTc Int : 476 ms Poor data quality, interpretation may be adversely affected Atrial fibrillation with rapid ventricular response with premature ventricular or aberrantly conducte d complexes Nonspecific ST and T wave abnormality , probably digitalis effect Abnormal ECG When compared with ECG of 28-AUG-2018 22:10, (Unconfirmed) No significant change was found Confirmed by SANTI REYES, SShukri ([id number]) on 08/31/2018 9:16:04 PM Referred By: ROBERT Confirmed By:DR. Domenic HANCOCK MD
--- NOTE | 2018-08-31 22:38 | PDOC.PN ---
- Subjective Encounter Start Date: 08/31/18 Encounter Start Time: 14:00 Patient seen and examined for CP/Afib with RVR. Off Cardizem drip. No new complaints except intermittent CP. Overnight events noted. - Objective MAR Reviewed: Yes Vital Signs & Weight: Vital Signs (12 hours) Temp Pulse Resp BP Pulse Ox 08/31/18 19:51 97.8 F 66 16 150/68 H 97 08/31/18 17:05 98.3 F 60 16 131/63 96 08/31/18 11:59 97.4 F L 55 L 18 127/60 96 Weight Weight 168 lb 6.4 oz I&O: 08/30/18 08/31/18 09/01/18 06:59 06:59 06:59 Intake Total 970 1120 470 Output Total 1050 1675 950 Balance -80 -555 -480 Result Diagrams: 08/31/18 06:46 08/31/18 06:46 EKG Reviewed by me: Yes (Afib with RVR earlier. No SB) Phys Exam - Physical Examination Constitutional: NAD Respiratory: no wheezing, no rhonchi Cardiovascular: RRR (bradycardic), no rub Gastrointestinal: soft, positive bowel sounds Musculoskeletal: no edema Neurological: non-focal Dx/Plan - Plan 1. Paroxysmal Afib with RVR 2. ?Tachy-stanford syndrome 3. CP prob due to tachyarrythmia 4. BPH 5. Chronic anticoag 6. Chronic Anemia PLAN: Cardio/EP following Cont Flecainide/Eliquis Cont to monitor Review of Systems - Review of Systems Cardiovascular: chest pain (earlier during RVR). negative: palpitations, orthopnea, paroxysmal nocturnal dyspnea, edema, light headedness, other Gastrointestinal: negative: Nausea, Vomiting, Abdominal Pain, Diarrhea, Constipation, Melena, Hematochezia, Other - Medications/Allergies Allergies/Adverse Reactions: Allergies Allergy/AdvReac Type Severity Reaction Status Date / Time No Known Drug Allergies Allergy Verified 08/29/18 01:31 Medications: Current Medications Cholecalciferol (Vitamin D3) 1,000 units PO DAILY [facility] Last Admin: 08/31/18 10:17 Dose: 1,000 units Enoxaparin Sodium (Lovenox) 80 mg SC 0900,2100 [facility] Stop: 09/01/18 23:59 Last Admin: 08/31/18 20:00 Dose: 80 mg Flecainide Acetate (Tambocor) 100 mg PO BID [facility] Last Admin: 08/31/18 20:00 Dose: 100 mg Sodium Chloride (Normal Saline 0.9%) 1,000 mls @ 75 mls/hr IV .[id number] [facility] Miscellaneous Information (Communication Order-Pharmacy) 0 each FS ONE [facility] Stop: 09/01/18 23:59 Pantoprazole Sodium (Protonix) 40 mg PO BID [facility] Last Admin: 08/31/18 20:00 Dose: 40 mg Enzalutamide [Xtandi (] 160 Mg) 0 each PO QPM [facility] Tamsulosin HCl (Flomax) 0.4 mg PO DAILY [facility] Last Admin: 08/31/18 10:18 Dose: 0.4 mg
--- NOTE | 2018-08-31 22:52 | CON ---
DATE OF CONSULTATION: 08/30/2018 REFERRING PHYSICIAN: Harley Frausto MD. REASON FOR CONSULTATION: Oral anticoagulation, atrial fibrillation, consideration of Watchman. HISTORY OF PRESENT ILLNESS: Mr. Gutierrez is a pleasant 78-year-old gentleman who presented to [facility] for chest pain. He was found to be in atrial fibrillation, RVR and eventually went back to sinus rhythm, but continues to have episodes of atrial fibrillation. He was started on flecainide by Cardiology. His chest pain improved after yazidism of sinus rhythm, although no recent evaluation of his coronary arteries has been done in the recent past. He had a left heart catheterization, possibly around 4-6 years ago and follows with Dr. Neal in [place]. He has also seen my associate, Dr. London for atrial fibrillation in the past and was seen most recently in March of 2018. He has been maintained on Eliquis for oral anticoagulation for some time now and unfortunately had an admission in the recent past for rectal bleed. He had a colonoscopy and upper endoscopy performed and was found to have diverticulosis. He was off Eliquis for a week before it was restarted. His first dose was on August 28, 2018. There was concern for a long-term bleeding complications and recurrence of bleeding issues with ongoing anticoagulation in addition to his persistent atrial fibrillation prompting the EP consultation. Mr. Gutierrez is resting in bed comfortably. His is at bedside. He currently denies any heart racing, palpitations, chest pain, pressure, syncope, near syncope, stroke, or stroke-like symptoms. He is not having bleeding issues after restarting Eliquis recently. He is currently free from chest pain. Of note, from our records with [facility], the patient has a history of palpitations with documented atrial fibrillation, RVR and had previously been on Multaq. He did have complaint of diarrhea and was switched to flecainide with resolution. He has also as mentioned been maintained on Eliquis. REVIEW OF SYSTEMS: A 12-point review of systems was conducted, is negative except that listed above in HPI. PAST MEDICAL HISTORY: 1. Paroxysmal atrial fibrillation. 2. GI bleed from likely what is being called diverticulosis. 3. History of prostate cancer. 4. Hernia repair. FAMILY HISTORY: Noncontributory. SOCIAL HISTORY: . No drugs or tobacco. Positive for 2 ounces of alcohol approximately two times a week. HOME MEDICATIONS: 1. Eliquis 5 mg p.o. b.i.d. 2. Xtandi 160 mg q.p.m. 3. Flomax 0.4 mg p.o. daily. 4. Omeprazole 20 mg p.o. b.i.d. 5. Flecainide 100 mg p.o. b.i.d. 6. Vitamin D3 1000 units daily. ALLERGIES: NO KNOWN DRUG ALLERGIES. OBJECTIVE: VITAL SIGNS: Temperature 97.4, pulse 55, blood pressure 127/60, respirations 18, and oxygen is 96% on room air. GENERAL: The patient is alert and oriented. Speech is clear. Affect is appropriate. He is in no apparent distress. HEART: Heart rate is currently regularly regular with crisp S1 and S2. LUNGS: Clear to auscultation bilaterally. He is in no apparent distress. ABDOMEN: Soft, nontender without palpable masses. Hepatojugular reflux is negative. EXTREMITIES: Warm and dry to touch without clubbing, cyanosis, or edema. NEUROLOGIC: Grossly intact and nonfocal. Gait was not assessed. LABORATORY DATA: Hematology was reviewed. WBC 3.8, hemoglobin 12.7 hematocrit 37.8, platelet count is 208. Chemistry unremarkable. Creatinine is 0.79. Serial troponins were negative. TSH is 2.57, free T4 is 0.88. DIAGNOSTIC STUDIES: Telemetry and EKGs reviewed and largely reflect sinus rhythm with paroxysmal episodes of atrial fibrillation. IMPRESSION: 1. Paroxysmal atrial fibrillation, on flecainide for arrhythmia suppression, but with breakthrough paroxysmal episodes. 2. Recent gastrointestinal bleed approximately 1 week ago attributed to diverticulosis now. 3. History of prostate cancer. 4. CHADS-VASc score of 2, currently on Eliquis for stroke prophylaxis, but as mentioned with recent gastrointestinal bleed. PLAN AND RECOMMENDATIONS: The patient will require long-term anticoagulation as he continues to have breakthrough paroxysmal atrial fibrillation episodes in spite of antiarrhythmic therapy with flecainide. He may benefit from a Watchman for left atrial appendage closure given his recent bleed. I would be very beneficial to know his coronary artery status for further guidance in choosing appropriate antiarrhythmic medication. Ultimately upon discharge, we will assist in arranging with outpatient followup with Dr. London to discuss further care and possible Watchman placement. Thank you for allowing us to participate in the care of this patient. Job ID: [id number]
[2018-09-01] MEDS: Flecainide 50 MG TAB PO SCH ×2 (08:33→19:59)
[2018-09-01] MEDS: Enoxaparin Sodium 80 MG/0.8 ML SYRINGE SC SCH (08:33)
[2018-09-01] MEDS: Tamsulosin HCl 0.4 MG CAP PO SCH (08:33)
--- NOTE | 2018-09-01 09:07 | PDOC.CTH ---
Cardiology Progress Note - Subjective EP PROGRESS NOTE: 09/01/18 Seen and evalauted as follow up for Parox A Fib and OAC guidance. No new AF episodes overnight. No new cardiac concerns or complaints today. - Objective Vital Signs Temp Pulse Resp BP Pulse Ox 09/01/18 03:15 97.5 F L 44 L 16 137/64 97 Weight 168 lb 3.2 oz 08/31/18 09/01/18 09/02/18 06:59 06:59 06:59 Intake Total 1120 990 Output Total 1675 950 Balance -555 40 - Physical Examination General/Neuro: alert & oriented x3, NAD Neck: carotid US brisk, no JVD present Lungs: CTA, unlabored respirations Heart: PMI normal, RRR Abdomen: NT/ND, soft - Telemetry Telemetry Rhythm: SR - Labs Result Diagrams: 08/31/18 06:46 08/31/18 06:46 Troponin/CKMB Troponin I 0.013 ng/mL (< 0.028) 08/29/18 05:21 - Assessment/Plan 1. Paroxysmal/persistent atrial fibrillation - previously suppressed with flecainide 100mg BID by records from [facility]/ Dr London - occasional break through RVR episodes - Had been on multaq in the past and not tolerated (diarrhea) 2. CHADS2-VASC: 2 (advanced age) - was Eliquis 5mg BID - recent GIB attributed to diverticulosis per GI scope - Stopped eliquis is favor of lovenox starting 4/2 PM in anticipation of LHC. Will require OAC upon DC. - needs score of at least 3 to qualify for Watchman. 3. Atypical chest pain - maybe related to tachycardia but would appreciate knowing CAD status as he is having CP and on flecainide. If CAD is present, alt. AAD would be needed. -LHC with Dr. 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 Continue to monitor for now. Cautiously use AV iovry blocking agents. QRS stable on [id number] BID. Continue therapy. Rhythm largely stable. No changes from EP perspective. Will arrange for routine followup with Dr London in [place] (his usual EP MD) upon DC.
--- NOTE | 2018-09-01 18:19 | PDOC.CTH ---
Cardiology Progress Note - Subjective He is doing well. No new issues. - Objective Vital Signs Temp Pulse Resp BP Pulse Ox 09/01/18 15:38 97.4 F L 63 16 144/63 H 97 09/01/18 11:26 98.2 F 61 16 124/58 L 96 09/01/18 07:54 97.6 F 46 L 16 141/64 H 97 Weight 168 lb 3.2 oz 08/31/18 09/01/18 09/02/18 06:59 06:59 06:59 Intake Total 1120 990 960 Output Total 1675 950 750 Balance -555 40 210 - Physical Examination General/Neuro: alert & oriented x3, NAD Neck: no JVD present Lungs: CTA, unlabored respirations Heart: RRR Abdomen: NT/ND Extremities: + edema B - Telemetry Telemetry Rhythm: NSR - Labs Result Diagrams: 08/31/18 06:46 08/31/18 06:46 Troponin/CKMB Troponin I 0.013 ng/mL (< 0.028) 08/29/18 05:21 - Assessment/Plan 1. Paroxysmal afib 2. Chest pain 3. Recent GI bleeding 4. Diverticulosis. PLAN: - Concern for angina with chest pain during tachycadia. - Risk stratification with [facility] tomorrow. We spoke about risk and benefits and he agrees to proceed. BMS if needed. - Hold lovenox after midnight.
--- NOTE | 2018-09-01 23:24 | PDOC.PN ---
- Subjective Encounter Start Date: 09/01/18 Encounter Start Time: 16:00 Patient seen and examined for Afib/CP. No CP today. No new complaints. No overnight events - Objective MAR Reviewed: Yes Vital Signs & Weight: Vital Signs (12 hours) Temp Pulse Resp BP Pulse Ox 09/01/18 19:48 97.7 F 61 18 138/63 98 09/01/18 15:38 97.4 F L 63 16 144/63 H 97 09/01/18 11:26 98.2 F 61 16 124/58 L 96 Weight Weight 168 lb 3.2 oz I&O: 08/31/18 09/01/18 09/02/18 06:59 06:59 06:59 Intake Total 1120 990 960 Output Total 1675 950 750 Balance -555 40 210 Result Diagrams: 08/31/18 06:46 08/31/18 06:46 EKG Reviewed by me: Yes (Tele SB) Phys Exam - Physical Examination Constitutional: NAD Respiratory: no wheezing, no rhonchi Cardiovascular: RRR, no rub Gastrointestinal: soft, non-tender, positive bowel sounds Musculoskeletal: no edema Dx/Plan - Plan DVT proph w/lovenox, DVT proph w/SCDs 1. Paroxysmal Afib with RVR 2. ?Tachy-stanford syndrome 3. CP prob due to tachyarrythmia 4. BPH 5. Chronic anticoag 6. Chronic Anemia PLAN: Cont Flecainide/Eliquis Cath in AM Cont other meds as below Review of Systems - Review of Systems Respiratory: negative: Cough, Dry, Shortness of Breath, Hemoptysis, SOB with Excertion, Pleuritic Pain, Sputum, Wheezing Cardiovascular: negative: chest pain, palpitations, orthopnea, paroxysmal nocturnal dyspnea, edema, light headedness, other Gastrointestinal: negative: Nausea, Vomiting, Abdominal Pain, Diarrhea, Constipation, Melena, Hematochezia, Other - Medications/Allergies Allergies/Adverse Reactions: Allergies Allergy/AdvReac Type Severity Reaction Status Date / Time No Known Drug Allergies Allergy Verified 08/29/18 01:31 Medications: Current Medications Cholecalciferol (Vitamin D3) 1,000 units PO DAILY [facility] Last Admin: 09/01/18 08:33 Dose: 1,000 units Enoxaparin Sodium (Lovenox) 80 mg SC 0900,2100 [facility] Stop: 09/01/18 23:59 Last Admin: 09/01/18 08:33 Dose: 80 mg Flecainide Acetate (Tambocor) 100 mg PO BID [facility] Last Admin: 09/01/18 19:59 Dose: 100 mg Sodium Chloride (Normal Saline 0.9%) 1,000 mls @ 75 mls/hr IV .[id number] [facility] Miscellaneous Information (Communication Order-Pharmacy) 0 each FS ONE [facility] Stop: 09/01/18 23:59 Pantoprazole Sodium (Protonix) 40 mg PO BID [facility] Last Admin: 09/01/18 19:59 Dose: 40 mg Enzalutamide [Xtandi (] 160 Mg) 0 each PO QPM [facility] Tamsulosin HCl (Flomax) 0.4 mg PO DAILY [facility] Last Admin: 09/01/18 08:33 Dose: 0.4 mg
[2018-09-02] MEDS ORDERED: Sodium Chloride 0.9% 1,000 ML IV SCH (00:01)
[2018-09-02] MEDS: Enoxaparin Sodium 80 MG/0.8 ML SYRINGE SC SCH (01:30)
[2018-09-02] MEDS: Tamsulosin HCl 0.4 MG CAP PO SCH (05:58)
[2018-09-02] MEDS: Flecainide 50 MG TAB PO SCH (05:58)
[2018-09-02 06:59] LABS: #Eosinphils 0.1 thou/uL (0.0-0.7); #Lymphocytes 1.1 thou/uL (1.20-3.40); #Monocytes 0.3 thou/uL (0.11-0.59); #Neutrophils 1.5 thou/uL (1.40-6.50); %Basophils 0.7 % (0.0-1.0); %Eosinophils 3.9 % (0.0-10.0); %Lymphocytes 36.6 % (21.0-51.0); %Monocytes 10.9 % (0.0-10.0); Hemoglobin 12.5 g/dL (14.0-18.0); Mean Corpuscular HGB CONC 33.3 g/dL (32.0-36.0); Mean Corpuscular Volume 95.9 fL (78.0-98.0); Mean Platelet Volume 7.2 fL (7.4-10.4); Platelet Count 186 thou/uL (130-400); RBC Distribution Width 12.1 % (11.5-14.5); Red Blood Cell (RBC) Count 3.92 mill/uL (4.70-6.10); White Blood Cell (WBC) Count 3.1 thou/uL (4.8-10.8)
[2018-09-02 07:19] LABS: ALT (SGPT) Less than 7 U/L (8-55); AST (SGOT) 8 U/L (5-34); Albumin 3.7 g/dL (3.4-4.8); Alkaline Phosphatase 52 U/L (40-150); Anion Gap 11 mmol/L (10-20); BUN (Urea Nitrogen) 17 mg/dL (8.4-25.7); Bilirubin, Total 0.8 mg/dL (0.2-1.2); Calc. Creatinine Clearance 74 mL/min (70-130); Carbon Dioxide 27 mmol/L (23-31); Chloride 104 mmol/L (98-107); Estimated GFR-MDRD 85; Globulin 2.2 g/dL (2.4-3.5); Glucose 101 mg/dL (83-110); Potassium 4.4 mmol/L (3.5-5.1); Protein, Total 5.9 g/dL (5.8-8.1); Sodium 138 mmol/L (136-145)
[2018-09-02] MEDS ORDERED: Heparin 10,000 UNITS/1 ML VIAL ONE (07:20)
[2018-09-02] MEDS ORDERED: Verapamil 5 MG/2 ML VIAL ONE (07:20)
[2018-09-02] MEDS ORDERED: Nitroglycerin 100MG/250ML BOT 250 ML ONE (07:20)
[2018-09-02] MEDS ORDERED: Midazolam HCl 2 mg/2 ml Vial ONE (07:24)
[2018-09-02] MEDS ORDERED: Fentanyl 100 MCG/2 ML VIAL ONE (07:24)
[2018-09-02] MEDS ORDERED: Sodium Chloride 0.9% 200 ML IV PRN (07:43)
[2018-09-02] MEDS ORDERED: Acetaminophen/Codeine 30-300mg Tablet PO PRN ×2 (07:43→15:20)
--- NOTE | 2018-09-02 10:54 | PDOC.CTH ---
Cardiology Progress Note - Subjective EP PROGRESS NOTE: 09/02/18 Seen and evalauted as follow up for Parox A Fib and OAC guidance. No new cardiac concerns or complaints today. LHC today with cardiology - Objective Vital Signs Temp Pulse Resp BP BP BP Pulse Ox 09/02/18 08:00 97.4 F L 44 L 16 141/65 H 99 09/02/18 07:55 97.4 F L 47 L 16 167/74 H 167/74 H 99 09/02/18 07:43 97.4 F L 47 L 16 167/74 H 99 09/02/18 03:30 97.5 F L 43 L 20 127/60 95 Weight 165 lb 09/01/18 09/02/18 09/03/18 06:59 06:59 06:59 Intake Total 990 1570 Output Total 950 1800 Balance 40 -230 - Physical Examination General/Neuro: alert & oriented x3, NAD Neck: carotid US brisk, no JVD present Lungs: CTA, unlabored respirations Heart: PMI normal, RRR Abdomen: NT/ND, soft - Telemetry Telemetry Rhythm: SR - Labs Result Diagrams: 09/02/18 06:48 09/02/18 06:48 Troponin/CKMB Troponin I 0.013 ng/mL (< 0.028) 08/29/18 05:21 - Assessment/Plan 1. Paroxysmal/persistent atrial fibrillation - previously suppressed with flecainide 100mg BID by records from [facility]/ Dr London - occasional break through AF episodes - Had been on multaq in the past and not tolerated (diarrhea) 2. CHADS2-VASC: 2 (advanced age) - was Eliquis 5mg BID - recent GIB attributed to diverticulosis per GI scope - Stopped eliquis is favor of lovenox starting 4/2 PM in anticipation of LHC. Will require OAC upon DC. - needs score of at least 3 to qualify for Watchman. 3. Atypical chest pain - maybe related to tachycardia but would appreciate knowing CAD status as he is having CP and on flecainide. If CAD is present, alt. AAD would be needed, as flecainide is not the ideal therapy with known CAD. -C 09/[address] Frausto 4. Tachy/stanford syndrome - tendency towards bradycardia even with low dose dilt gtt but IV dig had also been given recent. Continue to monitor for now. Cautiously use AV ivory blocking agents. - No symptomatic or profound bradycardia episodes since dilt gtt/ IV dig stopped QRS stable on [id number] BID. Continue therapy. Rhythm largely stable. No changes from EP perspective. Awaiting [facility] results. DC planning: Will arrange for followup with Dr London in [place] (his usual EP MD) upon DC.
[2018-09-02 14:07] LABS: Hemoglobin 12.7 g/dL (14.0-18.0); Platelet Count 185 thou/uL (130-400)
[2018-09-02 14:37] LABS: Calc. Creatinine Clearance 80 mL/min (70-130); Estimated GFR-MDRD Greater than 90
[2018-09-02] MEDS ORDERED: Enzalutamide [Xtandi] 160 MG PO SCH ×2 (15:30→21:00)
[2018-09-02] MEDS ORDERED: Iopamidol 370 76% 100 ML VIAL ONE (16:24)
[2018-09-02 16:43] VITALS: BP 171/72; TEMP 97
[2018-09-02] MEDS ORDERED: Apixaban 5 MG TAB PO SCH (21:00)
[2018-09-02] MEDS ORDERED: Flecainide 50 MG TAB PO SCH (21:00)
--- NOTE | 2018-09-03 08:01 | DIS ---
DATE OF ADMISSION: 08/28/2018 DATE OF DISCHARGE: 09/02/2018 DISCHARGE DISPOSITION: Home. FOLLOW-UP: 1. Follow up with primary care physician, Dr. Duglas Magallanes in 1 week. 2. Follow up with primary rodding machine tender, Dr. London in 1 week. ALLERGIES: NO KNOWN DRUG ALLERGIES. DISCHARGE MEDICATIONS: Same as admission medications. BRIEF HOSPITAL COURSE: The patient is a 78-year-old male with paroxysmal atrial fibrillation, presented to the hospital on 28 August 2018, with chest discomfort and palpitations. Please refer to the history and physical by Dr. Park for further details. The patient was admitted to the hospital with a diagnosis of atrial fibrillation with rapid ventricular response. He was started on Cardizem drip. While on Cardizem drip, the patient developed significant bradycardia along with sinus pauses, requiring discontinuation of the drip. The patient was evaluated by Cardiology as well as Electrophysiology. Flecainide and Eliquis were continued. On the day of discharge, the patient underwent cardiac catheterization to rule out ischemia as a cause of arrhythmia. His left main was normal. LAD normal. Left circumflex normal. RCA was normal and ramus were normal. He will continue Eliquis along with flecainide. He was advised to follow up with his primary rodding machine tender as outpatient. FINAL DIAGNOSES: 1. Paroxysmal atrial fibrillation with rapid ventricular response. 2. Tachy-stanford syndrome. 3. Chest discomfort, probably due to tachyarrhythmias. Please note that cardiac catheterization was negative. 4. Benign prostatic hypertrophy. 5. Chronic anemia. 6. Chronic anticoagulation. Job ID: [id number]
[2018-09-03] MEDS ORDERED: Tamsulosin HCl 0.4 MG CAP PO SCH (09:00)
[2018-09-03] MEDS ORDERED: Apixaban 5 MG TAB PO SCH (09:00)
== END 2018-09-02 18:06 | disposition home or self-care (01) | DRG 287 ==
LOC: ERS 21:51 → 2NO 22:30 → UNDODISIN 09-02 15:20
PROVIDERS: ADMIT Hospitalist; ATTEND Hospitalist
PROC: 4A023N7 Measurement of Cardiac Sampling and Pressure, Left Heart, Percutaneous Approach (ICD-10-PCS; principal; 2018-09-02)
PROC: B2151ZZ Fluoroscopy of Left Heart using Low Osmolar Contrast (ICD-10-PCS; 2018-09-02)
PROC: B2111ZZ Fluoroscopy of Multiple Coronary Arteries using Low Osmolar Contrast (ICD-10-PCS; 2018-09-02)
DX: I48.0 Paroxysmal atrial fibrillation (principal); I49.5 Sick sinus syndrome; E87.6 Hypokalemia; D64.9 Anemia, unspecified; C61 Malignant neoplasm of prostate; N40.0 Benign prostatic hyperplasia without lower urinary tract symptoms; K57.90 Diverticulosis of intestine, part unspecified, without perforation or abscess without bleeding; Z96.643 Presence of artificial hip joint, bilateral; Z79.01 Long term (current) use of anticoagulants; Z92.3 Personal history of irradiation; Z90.79 Acquired absence of other genital organ(s); Z79.899 Other long term (current) drug therapy; I48.1 Persistent atrial fibrillation
CPT/HCPCS: 36415; 36416; 71045; 80048; 80053; 82550; 82565; 83735; 84439; 84443; 84481; 84484; 85014; 85018; 85025; 85049; 93005; 93010; 93458; 96361; 96365; 96366; 99152; C1769; J1160; J1644; J1650; J2250; J3010; J3475; J7050; Q9967